=== PATIENT | male | born 1950 | race Two or more races ===

== ENCOUNTER 2018-12-03 00:26 | Inpatient (IN) | payer OTHER ==
[~2018-12-03] VITALS: Ht 162.6 cm; Wt 71.7 kg
--- NOTE | 2018-12-03 00:52 | NUR ---
SE RECIBE PACIENTE ALERTA Y ORIENTADO X3 EN COMPANIA DE FAMILIAR, EL PACIENTE REFIERE DOLOR ABDOMINAL, DIARREAS X4 Y VOMITOS 5 DESDE JODI.
[2018-12-03] MEDS ORDERED: [UNRECOGNIZED DRUG - OTHER] (00:54)
[2018-12-03] MEDS ORDERED: PROGRAF1 MG (00:54)
[2018-12-03] MEDS ORDERED: LANTUS SOL100 UNIT/1 (00:55)
[2018-12-03] MEDS ORDERED: COREG CR10 MG (00:55)
[2018-12-03] MEDS ORDERED: PLAVIX75 MG (00:55)
[2018-12-03] MEDS ORDERED: ATACAND HCT 321 EAC1 (00:55)
[2018-12-03] MEDS ORDERED: [UNRECOGNIZED DRUG - OTHER] (00:55)
--- NOTE | 2018-12-03 01:44 | NUR ---
SE RECIBE MASCULINO ALERTA Y ORIENTADO POR ABBIE ESFERAS, EN SILLA DE MERI. SE COLOCA EN CAMA CON BARANDAS SEGURAS Y ELEVADAS. SE CONECTA A MONITOR CARDIACO CON OXIMETRIA DE PULSO. SE GELA MUESTRAS DE LABORATORIO ORDENADAS. SE CANALIZA CON AREA DE VENOPUNCION AYE DE EDEMA O ENROJECIMIENTO. SE ADMINISTRAN MEDICAMENTOS ORDENADOS. SE MANTIENE EN OBSERVACION POR CAMBIOS.
--- NOTE | 2018-12-03 06:36 | NUR ---
SE OFRECE ROSALBA EN CAMA A PACIENTE Y EL MISMO REHUSA. SE OBSERVA EVACUADO Y CON RESIDUOS DE VOMITOS. PACIENTE INDICA QUE QUIERE ESPERAR QUE LLEGUE GUILLAUME ESPOSA CON ROPA.
--- NOTE | 2018-12-03 07:06 | NUR ---
SE RECIBE PTE EN CAMA CONECTADO A MONITOR CARDIACO Y OXIMETRIA DE PULSO SATURANDO UN 100% AT ROOM AIR. PTE PRESENTA AREA DE VENOPUNCION, AYE DE EDEMA Y ENROJECIMIENTO CON IV FLUID PATENTE 0.9NSS 1,000 AT 125ML/HR. PTE SE OBSERVA VOMITADO Y ESVACUADO EL CUAL REHUSA ROSALBA HASTA FAMILIAR LLEGAR CON PERTINENCIAS Y ARTICULOS PERSONALES. SE MANTIENE EL MISMO BAJO OBSERVACION RECIBIENDO TRATAMIENTO MEDICO EN ESPERA DE CONSULTA CON .
--- NOTE | 2018-12-03 08:17 | NUR ---
SE POLLO ROSALBA EN CAMA A PTE, NO SE OBSERVA ULCERA SACRAL O EXTREMIDADES INFERIORES. PTE SE ENCUENTRA CON PROTESIS DE TOBIN BARROS.
[2018-12-03] MEDS ORDERED: CELLCEPT500 MG (11:08)
== END 2018-12-06 11:18 | disposition home or self-care (01) | DRG 640 ==
LOC: ER 00:26 → SURH 12:43 → ICU-2 12:43 → SEC-K 14:02 → SURH 15:20
PROVIDERS: ADMIT Internal Medicine
PROC: 4A12X4Z Monitoring of Cardiac Electrical Activity, External Approach (ICD-10-PCS; 2018-12-03)
PROC: 8E0ZXY6 Isolation (ICD-10-PCS; 2018-12-03)
PROC: 0T9B70Z Drainage of Bladder with Drainage Device, Via Natural or Artificial Opening (ICD-10-PCS; 2018-12-03)
PROC: B246ZZZ Ultrasonography of Right and Left Heart (ICD-10-PCS; principal; 2018-12-04)
DX: E86.0 Dehydration (principal); I50.43 Acute on chronic combined systolic (congestive) and diastolic (congestive) heart failure; I13.0 Hypertensive heart and chronic kidney disease with heart failure and stage 1 through stage 4 chronic kidney disease, or unspecified chronic kidney disease; Z94.0 Kidney transplant status; N17.9 Acute kidney failure, unspecified; E87.8 Other disorders of electrolyte and fluid balance, not elsewhere classified; N18.2 Chronic kidney disease, stage 2 (mild); E11.22 Type 2 diabetes mellitus with diabetic chronic kidney disease; Z79.4 Long term (current) use of insulin; I25.10 Atherosclerotic heart disease of native coronary artery without angina pectoris; R79.89 Other specified abnormal findings of blood chemistry; I95.89 Other hypotension; I35.0 Nonrheumatic aortic (valve) stenosis